=== PATIENT | male | born 1955 | race Caucasian/White ===

== ENCOUNTER → 2019-09-15 | Outpatient (CLI) | payer MEDICARE ==
--- NOTE | 2019-09-15 12:07 | US ---
EXAMINATION TYPE: US carotid duplex BILAT DATE OF EXAM: 09/15/2019 COMPARISON: NONE CLINICAL HISTORY: R42 Dizziness E78.2 Mixed hyperlipidemia.... Pt states episode of dizziness EXAM MEASUREMENTS: RIGHT: Peak Systolic Velocity (PSV) cm/sec ----- Right CCA: 63.3 ----- Right ICA: 55.9 ----- Right ECA: 62.5 ICA/CCA ratio: 0.9 RIGHT: End Diastole cm/sec ----- Right CCA: 18.8 ----- Right ICA: 24.6 ----- Right ECA: 10.1 LEFT: Peak Systolic Velocity (PSV) cm/sec ----- Left CCA: 67.7 ----- Left ICA: 93.0 ----- Left ECA: 127.6 ICA/CCA ratio: 1.4 LEFT: End Diastole cm/sec ----- Left CCA: 23.2 ----- Left ICA: 45.7 ----- Left ECA: 29.2 VERTEBRALS (direction of flow): Right Vertebral: Antegrade Left Vertebral: Antegrade Rhythm: Normal [place] scale images show mild eccentric hyperechoic plaque at bilateral carotid volumes. Velocity measu rements and ratios in visualized portion both internal carotid arteries is within normal limits. IMPRESSION: Mild atherosclerotic changes bilaterally without hemodynamic significant stenosis seen in either internal carotid artery. Criteria for Assigning % of Stenosis / Diameter reduction (Estimation based on the indirect measurements of the internal carotid artery velocities (ICA PSV). 1. Normal (no stenosis)=ICA PSV < 125 cm/s: ratio < 2.0: ICA EDV<40 cm/s. 2. Less than 50% stenosis=ICA PSV < 125 cm/s: ratio < 2.0: ICA EDV<40 cm/s. 3. 50 to 69% stenosis=ICA PSV of 125 to 230 cm/s: ration 2.0 ? 4.0: ICA EDV 40-100 cm/s. 4. Greater than 70% stenosis to near occlusion= ICA PSV > 230 cm/s: ratio > 4.0: ICA EDV > 100 cm/s. 5. Near occlusion= ICA PSV velocities may be low or undetectable: variable ratio and ICA EDV. 6. Total occlusion=unable to detect flow.
--- NOTE | 2019-09-15 15:11 | EST ---
EXERCISE STRESS AGE: 64 SEX: M HT: 6'2" WT: 260 lbs. PROTOCOL: Chris STAGE: 3 DURATION OF EXERCISE: 9:00 HEART RATE REST: 80 BLOOD PRESSURE REST: 138/89 MAXIMUM HEART RATE ACHIEVED: 151 MAXIMUM BLOOD PRESSURE: 212/95 85% MPHR: 131 100% MPHR: 154 METS: 10.3 INDICATION: Dizziness. Baseline EKG shows sinus rhythm with right bundle branch block. Patient exercised on Chris protocol for a total of 9 minutes achieving 10 METS, 98% of predicted maximal heart rate without chest pain. EKG changes are inconclusive secondary to right bundle branch block and secondary ST-T wave changes. CONCLUSION: 1. Good exercise tolerance. 2. Inconclusive EKG part of the stress test due to baseline EKG abnormalities. MMODL / IJN: [id number] /
== END | disposition home or self-care (01) ==
LOC: RADNMMAIN 10:33
PROVIDERS: ATTEND Family Medicine
DX: I65.23 Occlusion and stenosis of bilateral carotid arteries (principal); R42 Dizziness and giddiness; R73.03 Prediabetes; E78.2 Mixed hyperlipidemia
CPT/HCPCS: 93017; 93880

== ENCOUNTER 2019-12-02 05:50 | Emergency (ER) | payer MEDICARE, BC ==
[2019-12-02 06:02] VITALS: RESP 18
[2019-12-02] MEDS ORDERED: IBUPROFEN 600 MG TAB PO STA (06:16)
--- NOTE | 2019-12-02 06:59 | ED ---
ENT HPI - General Chief complaint: ENT Stated complaint: Sore throat Time Seen by Provider: 12/02/19 06:03 Source: patient Mode of arrival: ambulatory - History of Present Illness Initial comments: Patient is a 64-year-old male presenting to the emergency Department with complaints of a sore throat for the past 5 days. Patient states he also started having a fever yesterday and has been feeling fatigued and generally ill over the past few days. He denies any cough, congestion, nausea, vomiting, diarrhea. He denies any trouble breathing, states his appetite has been low. He denies any other sick contacts. He denies any chest pain or shortness of breath. He did not take any Tylenol or Motrin this morning. He has no further complaints at this time. Upon arrival to the ER, patient is febrile to 100.8, pulse is 104, BP is 135/81, 97% on room air, respiratory rate of 18. - Related Data Previous Rx's Medication Instructions Recorded HYDROcodone/APAP 7.5-325MG [[place] 1 - 2 each PO Q6HR PRN #90 tab 02/08/14 7.5] Penicillin V Potassium [Pen Vee K] 500 mg PO BID 10 Days #20 tablet 12/02/19 Allergies Allergy/AdvReac Type Severity Reaction Status Date / Time No Known Allergies Allergy Verified 02/06/14 13:31 Review of Systems ROS Statement: Those systems with pertinent positive or pertinent negative responses have been documented in the HPI. ROS Other: All systems not noted in ROS Statement are negative. Past Medical History Additional Past Medical History / Comment(s): Pt states he is "possibly pre diabetic" History of Any Multi-Drug Resistant Organisms: None Reported Additional Past Surgical History / Comment(s): RIGHT SHOULDER. LEFT INGUINAL. LEFT SHOULDER ACROMINOPLASTY DISTAL CLAVICLE EXCISION ROTATOR CUFF REPAIR. Past Psychological History: No Psychological Hx Reported Smoking Status: Current every day smoker Past Alcohol Use History: None Reported Past Drug Use History: None Reported General Exam - General Exam Comments Initial Comments: GENERAL: Patient is well-developed and well-nourished. Patient is nontoxic and in no acute distress. HEAD: Atraumatic, normocephalic. EYES: Pupils equal round and reactive to light, extraocular movements intact, sclera anicteric, conjunctiva are normal. Eyelids were unremarkable. ENT: TMs normal, nares patent Moist mucous membranes. Patient's oropharynx is erythematous, no visible abscess seen. NECK: Normal range of motion, supple without lymphadenopathy or JVD. Mild pain with palpation in the left side. LUNGS: Unlabored respirations. Breath sounds clear to auscultation bilaterally and equal. No wheezes rales or rhonchi. HEART: Regular rate and rhythm without murmurs, rubs or gallops. ABDOMEN: Soft, nontender, normoactive bowel sounds. No guarding, no rebound. No masses appreciated. : Deferred MUSCULOSKELETAL: Normal extremities with adequate strength and normal range of motion, no pitting or edema. No clubbing or cyanosis. NEUROLOGICAL: Patient is alert and oriented x 3. Motor and sensory are also intact. Cranial nerves II through XII grossly intact. Symmetrical smile. Normal speech, normal gait. PSYCH: Normal mood, normal affect. SKIN: Warm, Dry, normal turgor, no rashes or lesions noted. Course Vital Signs 12/02/19 12/02/19 05:54 07:08 Temperature 100.8 F H 99.7 F H Pulse Rate 104 H 96 Respiratory 18 18 Rate Blood Pressure 135/81 107/66 O2 Sat by Pulse 97 98 Oximetry Medical Decision Making - Medical Decision Making Patient is 64-year-old male here for sore throat 5 days as well as having a fever 2 days. Patient did arrive febrile here. Patient's oropharynx was very erythematous, tonsils are swollen. Strep came back negative. I did do a CT of the soft tissue of the neck to rule out an abscess, no abscess was seen, just in flammatory changes. I will start patient on penicillin and recommended continue with Tylenol and Motrin for pain and swelling. Patient is stable for discharge. Strict return parameters were discussed with the patient and he verbalized understanding. He'll follow up with PCP. - Lab Data Lab Results 12/02/19 Range/Units 06:28 Group A Strep Rapid Negative (Negative) Disposition Clinical Impression: Tonsillitis Disposition: HOME SELF-CARE Condition: Stable Instructions (If sedation given, give patient instructions): Tonsillitis (ED) Additional Instructions: Please return to the Emergency Department if symptoms worsen or any other concerns. Take antibiotics as prescribed. Continue taking ibuprofen for fever and pain relief. Follow-up with PCP if symptoms persist after 3-4 days. Prescriptions: Penicillin V Potassium [Pen Vee K] 500 mg PO BID 10 Days #20 tablet Is patient prescribed a controlled substance at d/c from ED?: No Referrals: Curt Garland DO [Primary Care Provider] - 1-2 days
--- NOTE | 2019-12-02 07:05 | CT ---
EXAM: CT Neck Without Intravenous Contrast CLINICAL HISTORY: ITS.REASON CT Reason: neck pain, fever TECHNIQUE: Axial computed tomography images of the neck without intravenous contrast. CTDI is 16.27 mGy and DLP is 513.3 mGy-cm. This CT exam was performed using one or more of the following dose reduction techniques: automated exposure control, adjustment of the mA and/or kV according to patient size, and/or use of iterative reconstruction technique. COMPARISON: No relevant prior studies available. FINDINGS: Oropharynx: Enlarged left tonsil. Hypopharynx: Unremarkable. Larynx: Normal epiglottis. Thickened left aryepiglottic fold Trachea: Unremarkable. Retropharyngeal space: Trace effusion. Submandibular/parotid glands: Glands are normal in size. Thyroid: No nodules. Bones/joints: No acute fracture. Soft tissues: Unremarkable. Vasculature: Unremarkable. Lymph nodes: Reactive lymph nodes are seen on the left side Mastoid air cells: Unremarkable. No mastoid effusion. Lung apices: Patchy groundglass airspace opacity in the right upper lobe. IMPRESSION: 1. Enlarged left tonsil, correlate with tonsillitis. There is thickening of the left aryepiglottic fold at the larynx, likely due to inferior extension of this infectious process. Trace retropharyngeal effusion is seen which is likely reactive. No airway compromise. 2. Patchy groundglass opacities are seen in the right upper lobe, likely infectious/inflammatory process.
[2019-12-02 07:11] VITALS: BP 107/66; PULSE 96; TEMP 99.7
== END 2019-12-02 07:48 | disposition home or self-care (01) ==
LOC: EC 05:50
DX: J03.90 Acute tonsillitis, unspecified (principal); F17.200 Nicotine dependence, unspecified, uncomplicated
CPT/HCPCS: 70490; 87081; 87430; 99283

== ENCOUNTER 2022-09-03 09:06 | Day surgery (SDC) | payer MEDICARE, BC ==
[2022-08-29 16:00] VITALS: BMI 31.4
[~2022-09-03 09:06] MED LIST: ALPRAZolam 0.25 MG TAB PO PRN; ALPRAZolam 0.5 MG TAB PO PRN; ASPIRIN 325 MG TAB PO STA; ATORVASTATIN 80 MG TAB PO STA; HEPARIN SODIUM,PORCINE 10,000 UNIT in SODIUM CHLORIDE 0.9% 1,000 ML IRRIGATION PRN; HEPARIN SODIUM,PORCINE 2,500 UNIT in SODIUM CHLORIDE 0.9% 250 ML IRRIGATION PRN; NITROGLYCERIN SL TABS 0.4 MG TAB SUBLINGUAL PRN; SODIUM CHLORIDE 0.9% 1,000 ML in EMPTY BAG 1 BAG IV SCH
[2022-09-03 09:40] VITALS: RESP 18; TEMP 97.6
[2022-09-03] MEDS ORDERED: HEPARIN SODIUM 1,000 UN/ML (10ML VL) ONE (12:45)
[2022-09-03] MEDS ORDERED: VERAPAMIL 2.5 MG/ML 2 ML AMP ONE (12:45)
[2022-09-03] MEDS ORDERED: fentaNYL (PF) 50 MCG/ML 2 ML AMP ONE (12:46)
[2022-09-03] MEDS ORDERED: MIDAZOLAM 2 MG/2 ML VIAL IV ONE (13:00)
[2022-09-03] MEDS ORDERED: fentaNYL (PF) 50 MCG/ML 2 ML AMP IV ONE (13:00)
[2022-09-03] MEDS ORDERED: LIDOCAINE 1% INJ 10MG/ML (5 ML VIAL-PF) SQ ONE (13:03)
[2022-09-03] MEDS ORDERED: VERAPAMIL SYRINGE (5 MG/10 ML) INTRAARTER ONE (13:04)
[2022-09-03] MEDS ORDERED: HEPARIN SODIUM 1,000 UN/ML (10ML VL) IV ONE (13:07)
[2022-09-03] MEDS ORDERED: IOPAMIDOL-370 100ML BTL INJ ONE (13:18)
[2022-09-03 15:51] VITALS: PULSE 72
[2022-09-03 15:52] VITALS: BP 118/61
--- NOTE | 2022-09-03 22:23 | P.CARDCATH ---
Description of Procedure: PROCEDURES PERFORMED: Left heart catheterization, bilateral coronary angiography INDICATION: Abnormal stress test CONSENT:I have discussed the risks, benefits and alternative therapies for the above-mentioned procedure and for both sedation/analgesia as well as necessary blood product administration, if indicated, as they pertain to this patient. The patient has indicated understanding and acceptance of the risks and procedures discussed. PROCEDURE: After the risks, benefits and alternatives of the above mentioned procedure explained in detail with the patient, informed consent was obtained. Patient was taken to the catheterization lab and prepped and draped in usual fashion. 1% lidocaine was used to anesthetize the right radial artery. A 6- Jamaican sheath was placed in the right radial artery using modified Seldinger technique. Left coronary angiography was performed with a 5-Jamaican JL 3.5 catheter and right coronary angiography was performed with a 5-Jamaican JR5 catheter in various views. A 5-Jama[place] FR5 catheter was inserted into the left ventricle and pressure measurements were obtained. The right radial sheath was removed and a TR band was placed with hemostasis achieved. The patient tolerated the procedure well. Patient was transported back to the post catheterization holding area in stable condition. Conscious Sedation: Patient was monitored under the direct supervision of myself for conscious sedation using Versed and fentanyl for a total duration of 18 minutes HEMODYNAMICS: Aorta: 137/69 LV: 137/6, LVEDP 17 SELECTIVE CORONARY ARTERIOGRAPHY: LEFT MAIN: The left main is a large caliber vessel which bifurcates into the LAD and circumflex. There is no significant stenosis. LEFT ANTERIOR DESCENDING CORONARY ARTERY: LAD is a large caliber vessel which wraps around to the apex. There is a mid LAD 30-40% stenosis and otherwise mild luminal irregularities. Diagonal 1 has 30% stenosis. LEFT CIRCUMFLEX CORONARY ARTERY: Left circumflex is a moderate caliber vessel without significant stenosis. RIGHT CORONARY ARTERY: The right coronary artery is a large caliber vessel which gives off a PDA and PLV branch and is the dominant vessel. There are mild luminal irregularities. FINAL IMPRESSION: 1. Mild to moderate CAD as described above including 30-40% LAD stenosis and otherwise relatively normal coronary arteries. 2. Elevated left sided filling pressures PLAN: 1. Aggressive risk factor modification per most recent ACC/AHA guidelines. 2. Follow-up in the office in 1-2 weeks.
== END 2022-09-03 16:34 | disposition home or self-care (01) ==
LOC: CATHCVL 09:06
PROVIDERS: ATTEND Internal Medicine
DX: I25.10 Atherosclerotic heart disease of native coronary artery without angina pectoris (principal); E78.2 Mixed hyperlipidemia; E66.9 Obesity, unspecified; Z68.31 Body mass index [BMI] 31.0-31.9, adult; Z79.82 Long term (current) use of aspirin; Z79.899 Other long term (current) drug therapy
CPT/HCPCS: 93458; 99152; C1769; C1894; J2250; J2001; J3010; J1644; Q9967

== ENCOUNTER → 2023-02-17 | Outpatient (CLI) | payer MEDICARE, BC | END | disposition home or self-care (01) | LOC: LABWHC1 09:11 | PROVIDERS: ATTEND Psychiatry & Neurology Neurology | DX: Z01.818 Encounter for other preprocedural examination (principal); I45.10 Unspecified right bundle-branch block; R94.31 Abnormal electrocardiogram [ECG] [EKG] | CPT/HCPCS: 36415; 93005 ==

== ENCOUNTER → 2024-06-07 | Outpatient (CLI) | payer MEDICARE, BC ==
--- NOTE | 2024-06-07 10:31 | CT ---
EXAMINATION TYPE: CT shoulder RT wo con DATE OF EXAM: 06/07/2024 COMPARISON: None. CLINICAL INDICATION: Male, 69 years old with history of S46.011D STRAIN OF MUSC/TEND THE ROTATOR CUFF OF R; PHH, CT DLP: 398 mGycm Automated exposure control for dose reduction was used. FINDINGS: Mild to moderate narrowing and moderate spurring at the acromioclavicular joint. Tiny well-corticated ossific fragments or loose bodies at this level are seen. Glenohumeral joint shows narrowing with small bony projection from inferior medial aspect of the sam ral head. There is type D glenoid anteversion. Small glenohumeral joint effusion. There is 6 mm curvilinear calcification or ossification along the lateral aspect of the humeral head could reflect a calcific tendinitis of the rotator cuff. There appears to be at least mild to moderate atrophy of the supraspinatus and infraspinatus muscle b ulk. Visualized right lung is clear. IMPRESSION: As above. [facility], , 06/07/2024 10:29 AM
== END | disposition home or self-care (01) ==
LOC: RADCTMAIN 09:27
PROVIDERS: ATTEND Orthopaedic Surgery Sports Medicine
DX: S46.011D Strain of muscle(s) and tendon(s) of the rotator cuff of right shoulder, subsequent encounter (principal); M75.31 Calcific tendinitis of right shoulder